=== PATIENT | female | born 2000 | race Caucasian/White ===

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

== ENCOUNTER 2022-02-15 17:31 | Emergency (ER) | payer OTHER, SELFPAY ==
--- NOTE | ~2022-02-15 | XR_ITS ---
XR finger 1st RT min 2V DATE: 02/15/2022 17:57 INDICATION: Object fell on thumb 5 days ago. Proximal thumb pain TECHNIQUE: 3 views COMPARISON: None FINDINGS: No fracture or dislocation, periosteal reaction or bone destruction. IMPRESSION: Negative Reviewed, dictated and finalized at location A. IMPRESSION: Negative
[2022-02-15 17:41] VITALS: BP 111/72; PULSE 87; RESP 16; TEMP 36.6; O2SAT 100
--- NOTE | 2022-02-15 18:10 | ED.UPPEXIN ---
HPI - Extremity Injury (Upper) General Chief Complaint: Extremity Injury, Upper Stated Complaint: injury to thumb Time Seen by Provider: 02/15/22 18:11 Source: patient, RN notes reviewed and old records reviewed Mode of arrival: ambulatory Limitations: no limitations History of Present Illness HPI narrative: 21 year old female who presents to [facility] care with complaints of injury to her right thumb at work 5 days ago. Patient reports that a [employer] came down onto her thumb smashing her thumb with swelling and redness to her thumb especially at dorsal base of her thumb. Patient states that swelling and soreness has lessened significantly since initial injury but continues to have some stiffness of her thumb and discomfort which she states is a 4/10 and is intermittent. MD complaint: injury to: right and hand (Thumb) Onset (ago): day(s) (5) Other Extremity Injury: Right: fingers (right thumb) Other injuries: none Handedness: right Place: work Severity: moderate Severity scale (1-10): 4 Associated symptoms: denies other symptoms Treatments prior to arrival: cold therapy and NSAIDS Related Data Home Medications Medication Instructions Recorded Confirmed No Home Medications 02/15/22 02/15/22 Allergies Allergy/AdvReac Type Severity Reaction Status Date / Time No Known Allergies Allergy Unknown Verified 02/15/22 17:39 Review of Systems Review of Systems: CONSTITUTIONAL: Denies fever, chills, or sweats. EYES: Denies visual changes, redness, or discharge. ENT: Positive for rhinorrhea, congestion, no sore throat, or otalgia. CARDIOVASCULAR: Denies chest pain, palpitations, or edema. RESPIRATORY: Denies cough or dyspnea. GASTROINTESTINAL: Denies abdominal pain, nausea, vomiting, or diarrhea. GENITOURINARY: Denies dysuria or hematuria. SKIN: Denies rash or itching. MUSCULOSKELETAL: Denies back pain,positive for some right thumb discomfort dorsal proximal thumb especially with no injury to nail, or myalgia. NEUROLOGIC: Denies headache, numbness, or weakness. PSYCHIATRIC: Denies anxiety or depression. All systems reviewed & are unremarkable except as noted in HPI and below PMFSH Past Medical History Medical History Torsion of right ovary Surgical History Surgical History H/O exploratory laparotomy abdominal for torsion of right ovary Social History Social History Smoking status: Never smoker Alcohol intake: never Substance use: never Gender identity (if verbalized by the patient): Male Comments At time of signature, agree with nursing past medical, surgical, social and family history. There is no relevant family history pertinent to the presenting complaint Exam Narrative: GENERAL: Well-appearing, well-nourished, and in no acute distress. HEAD: Normocephalic, atraumatic. EYES: PERRLA and EOMI. ENT: Nares patent with some clear nasal rhinorrhea no epistaxis. Mucous membranes moist.TM's normal with good light reflex, throat pink with no lesions or exudates or tonsil swelling. NECK: Supple. no lymphadenopathy CHEST: Clear to auscultation. No respiratory distress.SAO2 100% on room air HEART: Regular rate and rhythm. No murmur heard. Normal peripheral pulses. ABDOMEN: Soft, nontender, nondistended, normal active bowel sounds. EXTREMITIES: Normal range of motion. No edema. Some discomfort to dorsal proximal thumb with minimal swelling noted, full ROM of thumb with brisk capillary refill and strong right radial pulse SKIN: Warm, dry, no rash. NEURO: No focal deficits. Alert and oriented x3. Course Course Level of Care: Express Care Visit Vital Signs Vital signs: Vital Signs Temperature 36.6 C 02/15/22 17:41 Pulse Rate 87 02/15/22 17:41 Respiratory Rate 16 02/15/22 17:41 Blood Pressure 111/72 02/15/22 17:41 Pulse Oximetry 100 02/15
== END 2022-02-15 18:45 | disposition home or self-care (01) ==
PROVIDERS: Emergency Provider Registered Nurse; PCP Pediatrics
DX: S60.011A Contusion of right thumb without damage to nail, initial encounter (principal); X58.XXXA Exposure to other specified factors, initial encounter
CPT/HCPCS: 73140; 99213; G0463

== ENCOUNTER 2022-04-05 18:23 | Emergency (ER) | payer OTHER, SELFPAY ==
--- NOTE | ~2022-04-05 | CT_ITS ---
EXAMINATION: CT abdomen pelvis w con DATE: 04/05/2022 19:57 INDICATION: Low abdominal pain. Flank pain. TECHNIQUE: Computed tomography (CT) of the abdomen and pelvis was performed with 100 mL Omnipaque 350 intravenous contrast. Automated exposure control and iterative reconstruction technique were employe d. The dose-length product was 218.46 mGy-cm. COMPARISON: None. FINDINGS: The visualized portions of the lung bases are clear without pneumonia or pleural effusion. The heart size is normal. No pericardial effusion. The liver, gallbladder, spleen, pancreas, adrenal glands, and kidneys are normal. There are no dilated loops of bowel. The appendix is normal. There ar e no pathologically enlarged lymph nodes. There is physiologic fluid in the pelvis. The bones are unr emarkable. IMPRESSION: 1. No etiology for the patient's symptoms. Reviewed, dictated and finalized at location A.
[2022-04-05 18:35] VITALS: BP 132/95; PULSE 103; RESP 16; TEMP 36.9; O2SAT 100
--- NOTE | 2022-04-05 18:41 | ECG_ITS ---
Measurements Intervals [place] Rate: 90 P: 128 ND: 153 QRS: 145 QRSD: 81 T: 152 QT: 341 QTc: 419 Interpretive Statements SINUS RHYTHM ARM LEADS REVERSED INCOMPLETE RIGHT BUNDLE BRANCH BLOCK BASELINE ARTIFACT- I, II, III, AVL BORDERLINE ECG Electronically Signed On 04-05-2022 19:59:15 CDT by Aurelio Hayes D.O.
--- NOTE | 2022-04-05 18:42 | ED.ABDPAIN ---
HPI - Abdominal Pain General Chief Complaint: Abdominal Pain Stated Complaint: abd pain, back pain Source: patient Mode of arrival: ambulatory Limitations: no limitations History of Present Illness HPI narrative: this is a 21-year-old female with no significant past medical history presents with abdominal pain that started earlier this morning, the patient denies any nausea or vomiting there is no diarrhea constipation, the patient is afebrile, with some abdominal pain that she rates about a 7/10 localizing to the suprapubic and periumbilical area. Patient denies dysuria, no hematuria. MD elicited complaint: abdominal pain Pain Consistency: constant Location: periumbilical Severity: moderate Pain scale (0-10): 7 Quality: aching Radiation: suprapubic Migration to: periumbilical Exacerbating factors: nothing Relieving factors: nothing Related Data Home Medications Medication Instructions Recorded Confirmed No Home Medications 02/15/22 04/05/22 Allergies Allergy/AdvReac Type Severity Reaction Status Date / Time No Known Allergies Allergy Unknown Verified 02/15/22 17:39 Review of Systems Review of Systems: All systems reviewed & are unremarkable except as noted in HPI and below PMFSH Past Medical History Medical History Torsion of right ovary Surgical History Surgical History H/O exploratory laparotomy abdominal for torsion of right ovary Social History Social History Smoking status: Never smoker Alcohol intake: never Substance use: never Gender identity (if verbalized by the patient): Male Exam Const: General: no acute distress Orientation/consciousness: patient oriented x3 HENMT: Head: normal to inspection Eyes: Conjunctivae: conjunctivae normal Pupils: Equal, round and reactive pupils present Neck: Neck: normal visual inspection and no lymphadenopathy Chest: Chest palpation & inspection: normal inspection of the chest Resp: Effort & Inspection: normal respiratory effort Auscultation: clear to auscultation bilaterally Cardio: Rate: regular rate Rhythm: regular rhythm GI: GI Palp: Yes Soft to palpation and Yes Tenderness to palpation present (GI) Back/Spine/Pelvis: Back: no CVA tenderness Skin: General skin exam: normal color and no rashes or lesions noted Neuro: General: oriented to person, oriented to place and oriented to time Extrem: General: normal to inspection, full ROM and capillary refill normal Right lower extremity: normal to inspection, full ROM and normal capillary refill Psych: Appearance: grossly normal and well kempt Mental Status: mental status grossly normal Course Course Emergency Course: IV started patient received IV fluids, IV Toradol, CT scan of abdomen pelvis with contrast performed as well as blood work reviewed with patient and family. Vital Signs Vital signs: Vital Signs Temperature 36.9 C 04/05/22 18:35 Pulse Rate 103 H 04/05/22 18:35 Respiratory Rate 16 04/05/22 18:35 Blood Pressure 132/95 H 04/05/22 18:35 Pulse Oximetry 100 04/05/22 18:35 Temperature 36.9 C 04/05/22 18:35 Pulse Rate 103 H 04/05/22 18:35 Respiratory Rate 16 04/05/22 18:35 Blood Pressure 132/95 H 04/05/22 18:35 Pulse Oximetry 100 04/05/22 18:35 Critical Care Time Critical Care Time Critical Care Time: No Discharge Plan Discharge Prescriptions: No Action No Home Medications RF: 0
[2022-04-05] MEDS: KETOROLAC 30 MG/ML VIAL (*BKC) IV PUSH (18:50)
[2022-04-05] MEDS: SODIUM CHLORIDE 0.9% IV 1,000 ML 999 ML IV CONT (18:51)
[2022-04-05 19:03] LABS: Basophils Absolute Auto 0.02 K/mm3 (0.00-0.10); Basophils Percent Auto 0.4 % (0.0-1.0); Eosinophils Percent Auto 3.9 % (1.0-6.0); Hematocrit 36.8 % (35.0-49.0); Hemoglobin 11.9 g/dL (12.0-15.0); Immature Granulocyte Absolute 0.02 K/mm3 (0.00-0.00); Immature Granulocyte Percent A 0.4 % (0.0-0.0); Lymphocytes Absolute Auto 0.97 K/mm3 (1.10-4.50); Lymphocytes Percent Auto 18.9 % (18.0-42.0); Mean Corpuscular HGB Conc 32.3 g/dL (32.0-36.0); Mean Corpuscular Hemoglobin 28.4 pg (27.0-31.0); Mean Corpuscular Volume 87.8 fL (78.0-102.0); Mean Platelet Volume 10.4 fl (9.2-11.8); Monocytes Absolute Auto 0.44 K/mm3 (0.10-0.90); Monocytes Percent Auto 8.6 % (2.0-11.0); Neutrophils Absolute Auto 3.5 K/mm3 (1.7-7.2); Neutrophils Percent Auto 67.8 % (50.0-70.0); Platelet Count Result 219 K/mm3 (150-420); Red Blood Count 4.19 M/mm3 (4.20-5.40); Red Cell Distribution Width 12.9 % (11.6-14.4); White Blood Count 5.1 K/mm3 (4.8-10.8)
[2022-04-05 19:04] LABS: Add Urine Microscopic? YES; Appearance Urine Clear (Clear); Bilirubin Urine Negative (Negative); Blood Urine Negative (Negative); Color Urine Yellow (Yellow); Glucose Urine UA Negative (Negative); Ketones Urine Negative (Negative); Leukocyte Esterase Ur Negative (Negative); Nitrate Urine Negative (Negative); Protein Urine Negative (Negative); Specific Grav Ur 1.025 (1.010-1.020)
[2022-04-05 19:06] LABS: Pregnancy On Board Control Positive; Urine Pregnancy Test Negative
[2022-04-05 19:10] LABS: Bacteria Urine Trace /hpf; RBC Urine 0-2 /hpf (0-2); Squamous Epithelial Cell Urine Few /hpf (Few); WBC Urine 0-3 /hpf (0-3)
[2022-04-05 19:17] LABS: Partial Thromboplastin Time 29.4 SEC (23.90-30.70); Prothrombin Time 10.8 Seconds (9.50-12.10)
[2022-04-05 19:19] LABS: Alanine Aminotransferase 15 U/L (14-59); Albumin Level 3.2 g/dL (3.4-5.0); Alkaline Phosphatase 65 U/L (50-130); Anion Gap 6 mmol/L (8-16); Aspartate Amino Transferase 16 U/L (15-37); Bilirubin,Total 0.3 mg/dL (0.00-1.00); Blood Urea Nitrogen 9 mg/dL (7-18); CRP 4.1 mg/dL (0.0-0.9); Calcium 8.1 mg/dL (8.5-10.1); Carbon Dioxide 26 mmol/L (21-32); Chloride 101 mmol/L (98-108); Estimated Glomerular Filt Rate > 60; Glucose 91 mg/dL (70-99); Lipase 58 U/L (73-393); Osmolality Calculated 274 mOsm/kg (285-295); Potassium 3.7 mmol/L (3.5-5.1); Sodium 133 mmol/L (136-145); Total Protein 6.6 g/dL (6.4-8.2)
[2022-04-05 19:24] LABS: Lactic Acid Reflex 0.4 mmol/L (0.4-2.0)
[2022-04-05 20:41] VITALS: BP 124/83; PULSE 89; RESP 16; O2SAT 99
== END 2022-04-05 20:42 | disposition home or self-care (01) ==
PROVIDERS: Emergency Provider Emergency Medicine; PCP Pediatrics
DX: R10.9 Unspecified abdominal pain (principal)
CPT/HCPCS: 36415; 74177; 80053; 81001; 81025; 83605; 83690; 85025; 85610; 85730; 86140; 93005; 96361; 96374; 99284; J1885; J7030; Q9967

== ENCOUNTER 2022-12-20 02:19 | Emergency (ER) | payer OTHER, SELFPAY ==
--- NOTE | ~2022-12-20 | CT_ITS ---
CT Abdomen and Pelvis with contrast. History: Abdominal pain. Spiral CT of the abdomen and pelvis was performed after the administration of intravenous contrast. 1 00 cc of Omnipaque 350 was administered intravenously without complication. Dose reduction technique was used on this scan by utilizing automated exposure control and iterative reconstruction technique. The dose-length product (DLP) was 277.76 mGy-cm. COMPARISON: 04/05/2022 Findings: Scans through the lung bases demonstrate mild atelectatic change. The liver, spleen, pancreas, gallbladder, adrenals and kidneys are within normal limits. No evidence of aortic aneurysm. No lymphadenopathy is seen. There is no evidence of bowel obstruction. There is no evidence to suggest acute appendicitis or dive rticulitis. Images through the pelvis were performed. Urinary bladder unremarkable. No adnexal mass seen. No asci ella is seen. Impression: No significant abnormalities seen. Reviewed, dictated and finalized at [facility]. EATIONAL VEHICLE REPAIRER Impression: No significant abnormalities seen.
[2022-12-20 02:25] VITALS: BP 112/78; PULSE 125; RESP 18; TEMP 37; O2SAT 99
[2022-12-20 03:02] LABS: Basophils Absolute Auto 0.1 K/mm3 (0.0-0.1); Basophils Percent Auto 0.3 % (0.2-1.2); Eosinophils Absolute Auto 0.4 K/mm3 (0-0.3); Eosinophils Percent Auto 1.8 % (0-4.4); Hematocrit 43.8 % (37.0-47.0); Hemoglobin 14.7 g/dL (12.0-15.0); Immature Granulocyte Absolute 0.13 K/mm3 (0.00-0.031); Immature Granulocyte Percent A 0.6 % (0-0.5); Lymphocytes Absolute Auto 1.52 K/mm3 (0.9-3.2); Lymphocytes Percent Auto 7.4 % (18.3-44.2); Mean Corpuscular HGB Conc 33.6 g/dl (32-36); Mean Corpuscular Hemoglobin 29.3 pg (26-34); Mean Corpuscular Volume 87.4 fl (80-100); Monocytes Percent Auto 4.7 % (2.6-8.5); Neutrophils Absolute Auto 17.4 K/mm3 (1.3-6.7); Neutrophils Percent Auto 85.2 % (45.5-73.1); Platelet Count Result 309 k/mm3 (150-375); Red Blood Count 5.01 M/mm3 (4.2-5.4); Red Cell Distribution Width 13.2 % (11.5-14.5); White Blood Count 20.5 K/mm3 (4.5-10.0)
[2022-12-20] MEDS: DICYCLOMINE HCL INJ 20 MG/2 ML VIAL IM (03:04)
[2022-12-20] MEDS: SODIUM CHLORIDE 0.9% IV 1,000 ML 999 ML IV CONT (03:06)
[2022-12-20] MEDS: ONDANSETRON INJ 4 MG/2 ML VIAL IV PUSH (03:06)
[2022-12-20 03:12] LABS: Alanine Aminotransferase 20 U/L (6-35); Albumin Level 4.7 g/dL (3.5-5.1); Alkaline Phosphatase 65 U/L (38-126); Anion Gap 13 mmol/L (8-16); Aspartate Amino Transferase 32 U/L (14-36); Bilirubin,Total 0.7 mg/dL (0.2-1.3); Blood Urea Nitrogen 10 mg/dL (7-17); Calcium 8.8 mg/dL (8.4-10.2); Carbon Dioxide 16 mmol/L (22-30); Chloride 105 mmol/L (98-107); Estimated CRCL calculation 110 ml/min; Estimated Glomerular Filt Rate > 60; Glucose 122 mg/dL (65-110); Lipase 62 U/L (23-300); Potassium 4.1 mmol/L (3.4-5.0); Sodium 134 mmol/L (137-145)
[2022-12-20 04:00] LABS: Appearance Urine Slightly Cloudy (Clear); Bilirubin Urine 1+ (Negative); Blood Urine Negative (Negative); Color Urine Amber (Yellow); Glucose Urine UA Negative (Negative); Ketones Urine Trace mg/dL (Negative); Leukocyte Esterase Ur Negative LEU/UL (Negative); Nitrate Urine Negative (Negative); Protein Urine 1+ mg/dL (Negative); Specific Grav Ur 1.025 (1.001-1.035); Urobilinogen Urine 0.2 mg/dL (<2.0)
[2022-12-20 04:06] LABS: Bacteria Urine Trace /hpf; Mucus Urine Heavy /lpf; RBC Urine 0-2 /hpf (0-2); Squamous Epithelial Cell Urine Many /hpf (Few); WBC Urine 0-3 /hpf
[2022-12-20 04:07] LABS: Add Urine Microscopic? YES
[2022-12-20 04:37] VITALS: BP 130/50; PULSE 82; RESP 18; TEMP 36.7; O2SAT 99
--- NOTE | 2022-12-20 06:13 | ED.NAVMDI ---
HPI - Nausea/Vomiting/Diarrhea General Chief complaint: Nausea/Vomiting/Diarrhea Stated complaint: n/v/d Time Seen by Provider: 12/20/22 02:36 History of Present Illness HPI Narrative: Patient is a 22-year-old female who presents the ER with abdominal pain nausea vomiting. Sudden onset this evening. Reports her father had similar symptoms the day before. No blood in diarrhea. No alleviating factors for her cramping or vomiting. Cannot keep down water. Related Data Allergies Allergy/AdvReac Type Severity Reaction Status Date / Time No Known Allergies Allergy Unknown Verified 12/20/22 02:45 Review of Systems Review of Systems: All systems reviewed & are unremarkable except as noted in HPI and below Constitutional: Constitutional: Denies chills, Reports fatigue and Denies fever(s) Cardiovascular: Cardiovascular: Denies chest pain, Denies rapid heart rate and Denies radiating jaw, neck or arm pain Respiratory: Respiratory: Denies cough and Denies dyspnea Gastrointestinal: Gastrointestinal: Reports abdominal pain, Reports bloating, Reports diarrhea, Reports nausea and Reports vomiting Genitourinary: Genitourinary: Reports no additional female genitourinary complaints [facility] Past Medical History Medical History Torsion of right ovary Surgical History Surgical History H/O exploratory laparotomy abdominal for torsion of right ovary Social History Social History (System 10/02/22 @ 09:17 by Chelsy Ayala) Smoking status: Never smoker Alcohol intake: never Substance use: never Gender identity (if verbalized by the patient): Male Exam Narrative: GENERAL: Comfortable-appearing, well-nourished, and in no acute distress. HEAD: Normocephalic, atraumatic. ENT: Mucous membranes moist. CHEST: Clear to auscultation. No respiratory distress. HEART: Tachycardic and regular. Normal peripheral pulses. ABDOMEN: Soft, nontender, nondistended. EXTREMITIES: Normal range of motion. No edema. SKIN: Warm, dry, no rash. NEURO: Alert and oriented x3. PSYCH: Normal mood and affect. Course Course Emergency Course: Patient hydrated and received Zofran and Bentyl and feels markedly better. Discharge home. Vital Signs Vital signs: Vital Signs Temperature 98.6 F 12/20/22 02:25 Pulse Rate 125 H 12/20/22 02:25 Respiratory Rate 18 12/20/22 02:25 Blood Pressure 112/78 12/20/22 02:25 Pulse Oximetry 99 12/20/22 02:25 Oxygen Delivery Room Air 12/20/22 02:25 Temperature 98.0 F 12/20/22 04:37 Pulse Rate 82 12/20/22 04:37 Respiratory Rate 18 12/20/22 04:37 Blood Pressure 130/50 L 12/20/22 04:37 Pulse Oximetry 9 L 12/20/22 04:37 Oxygen Delivery Room Air 12/20/22 02:25 MDM - Nausea/Vomiting/Diarrhea Lab Data 12/20/22 02:56 12/20/22 02:56 Labs: Lab Results 12/20/22 12/20/22 12/20/22 Range/Units 02:56 02:56 02:56 WBC 20.5 H (4.5-10.0) K/mm3 RBC 5.01 (4.2-5.4) M/mm3 Hgb 14.7 (12.0-15.0) g/dL Hct 43.8 (37.0-47.0) % MCV 87.4 (80-100) fl MCH 29.3 (26-34) pg MCHC 33.6 (32-36) g/dl RDW 13.2 (11.5-14.5) % Plt Count 309 (150-375) k/mm3 MPV 10.0 (7.4-10.4) fl Immature Gran % (Auto) 0.6 H (0-0.5) % Neut % (Auto) 85.2 H (45.5-73.1) % Lymph % (Auto) 7.4 L (18.3-44.2) % [place] % (Auto) 4.7 (2.6-8.5) % Eos % (Auto) 1.8 (0-4.4) % Baso % (Auto) 0.3 (0.2-1.2) % Lymph # (Auto) 1.52 (0.9-3.2) K/mm3 [place] # (Auto) 1.0 H (0.1-0.6) K/mm3 Eos # (Auto) 0.4 H (0-0.3) K/mm3 Baso # (Auto) 0.1 (0.0-0.1) K/mm3 Abs Immat Gran (auto) 0.13 H (0.00-0.031) K/mm3 Absolute Neuts (auto) 17.4 H (1.3-6.7) K/mm3 Absolute Nucleated RBC 0.0 (0.0-0.012) K/mm3 Nucleated RBC % 0.0 (0.0-0.2) % Sodium 134 L (137-145) mmol/L Potassium 4.1 (3.4-5.0) mmol
[2022-12-20 06:24] VITALS: BP 128/70; PULSE 76; RESP 16; TEMP 36.9; O2SAT 100
== END 2022-12-20 06:28 | disposition home or self-care (01) ==
PROVIDERS: Emergency Provider Emergency Medicine; PCP Emergency Medicine
DX: K52.9 Noninfective gastroenteritis and colitis, unspecified (principal)
CPT/HCPCS: 36415; 74177; 80053; 81001; 81025; 83690; 85025; 96361; 96372; 96374; 99284; J0500; J2405; J7030; Q9967

== ENCOUNTER 2023-01-28 09:21 | Emergency (ER) | payer OTHER, SELFPAY ==
[2023-01-28] VITALS (19 sets, daily range): BP systolic 106–135; BP diastolic 62–84; PULSE 97–131; RESP 16–18; TEMP 36.8–37.9; O2SAT 97–100
--- NOTE | ~2023-01-28 | CT_ITS ---
EXAMINATION: CT abdomen pelvis wo con DATE: 01/28/2023 11:18 INDICATION: Left lower quadrant pain TECHNIQUE: Computed tomography (CT) of the abdomen and pelvis was performed without intravenous contr ast. The dose-length product was 281.06 mGy-cm. Automated exposure control and iterative reconstructi on technique were employed. COMPARISON: None. FINDINGS: Lung bases are unremarkable. Heart size normal. No significant pleural or pericardial effus ion. There is left perinephric stranding. The liver, spleen, pancreas, are unremarkable. There are pu nctate nonobstructing right renal stones. Possible gallstone. Nonobstructive bowel pattern. Small rosibel unt of free fluid in the pelvis. No free air. IMPRESSION: 1. Left perinephric stranding, nonspecific. Consider ascending urinary tract infection and/or pyelone phritis. 2: Nonobstructing right nephrolithiasis Reviewed, dictated and finalized at location [facility]. ET RECORDER IMPRESSION: 1. Left perinephric stranding, nonspecific. Consider ascending urinary tract in fection and/or pyelonephritis. 2: Nonobstructing right nephrolithiasis
--- NOTE | 2023-01-28 10:02 | ED.GENADULT ---
HPI - General Adult General Chief complaint: Abdominal Pain Stated complaint: abdominal pain Time Seen by Provider: 01/28/23 09:40 History of Present Illness HPI narrative: The patient is a 22-year-old otherwise healthy woman who has had a 3 day history of left lower quadrant abdominal pain, constant in nature, increasing in intensity, radiating to the left back, associated with fevers as high as 103? yesterday for which she took Tylenol, most recently yesterday. She had also taken Aleve and ibuprofen prior to that, 2 days ago. Today, she took an over the counter herbal remedy for flu-like symptoms. No Tylenol or ibuprofen today. One loose bowel movement yesterday but none today. No rhinorrhea currently but had rhinorrhea or yesterday. No sore throat today but had sore throat yesterday. No rash. No chest pain or cough. No other complaints. Malaise noted. No urinary symptoms such as dysuria urinary urgency. Has urinary frequency but has been drinking lots of water. No significant vaginal discharge. Related Data Allergies Allergy/AdvReac Type Severity Reaction Status Date / Time No Known Allergies Allergy Unknown Verified 01/28/23 09:40 Review of Systems Review of Systems: All systems reviewed & are unremarkable except as noted in HPI and below Constitutional: Constitutional: Reports as per HPI, Reports no additional constitutional complaints, Reports chills, Denies excessive sweating, Reports fatigue, Reports fever(s), Denies headache(s) and Reports weakness Eyes: Eyes: Reports as per HPI, Reports no additional eye complaints, Denies change in vision and Denies photophobia ENT: Reports system reviewed and no additional complaints, except as documented, Reports as per HPI, Denies dysphagia, Denies vertigo, Denies dizziness, Denies headache(s), Denies lip swelling, Denies nasal congestion, Reports sore throat, Denies throat swelling and Denies tongue swelling Cardiovascular: Cardiovascular: Reports as per HPI, Reports no additional cardiovascular complaints, Denies chest pain, Denies syncope, Denies rapid heart rate and Denies dyspnea Respiratory: Respiratory: Reports as per HPI, Reports no additional respiratory complaints, Denies chest congestion, Denies cough, Denies dyspnea and Denies wheezing Gastrointestinal: Gastrointestinal: Reports as per HPI, Reports no additional gastrointestinal complaints, Reports abdominal pain, Denies constipation, Denies dysphagia, Reports diarrhea, Denies nausea and Denies vomiting Genitourinary: Genitourinary: Reports as per HPI, Denies hematuria, Denies urinary frequency, Denies dysuria, Denies urinary incontinence and Denies urinary urgency Musculoskeletal: Musculoskeletal: Reports no additional musculoskeletal complaints, Reports back pain, Reports myalgias, Denies arthralgias, Denies joint swelling and Denies numbness Integumentary/Breasts: Skin/Breast: Reports system reviewed and no additional complaints, except as docu, Denies pruritus, Denies erythema, Denies rash and Denies skin ulcer Neurologic: Reports system reviewed and no additional complaints, except as documented, Reports as per HPI, Denies confusion, Denies vertigo, Denies dizziness, Denies syncope, Denies headache(s), Denies focal weakness, Denies numbness and Denies weakness Psychiatric: Psychiatric: Reports as per HPI, Denies anxiety, Denies confusion, Denies depression, Denies homicidal ideation and Denies suicidal ideation Endocrine: Endocrine: Reports no additional endocrine complaints, Denies excessive sweating, Denies fatigue, Denies polydipsia and Denies polyuria Hematologic/Lymphatic: Hematologic/Lymphatic: Reports no additional hematologic/lymphatic complaints, Denies easy bleeding and Denies easy bruising Allergic/Immunologic: Allergic/Immunologic: Reports no additional allergic/immunologic complaints, Denies lip swelling, Denies throat swelling, Denies tongue swelling and Denies wheezing PMFSH Past Medical History Medical His
[2023-01-28] MEDS: SODIUM CHLORIDE 0.9% IV 1,000 ML 999 ML IV CONT (10:27)
[2023-01-28] MEDS: ACETAMINOPHEN 325 MG TABLET 650 MG PO (10:28)
[2023-01-28 10:30] LABS: Basophils Absolute Auto 0.02 K/mm3 (0.00-0.10); Basophils Percent Auto 0.2 % (0.0-1.0); Eosinophils Absolute Auto 0.02 K/mm3 (0.02-0.50); Eosinophils Percent Auto 0.2 % (1.0-6.0); Hemoglobin 12.6 g/dL (12.0-15.0); Immature Granulocyte Absolute 0.07 K/mm3 (0.00-0.00); Immature Granulocyte Percent A 0.6 % (0.0-0.0); Lymphocytes Absolute Auto 0.53 K/mm3 (1.10-4.50); Lymphocytes Percent Auto 4.8 % (18.0-42.0); Mean Corpuscular HGB Conc 33.2 g/dL (32.0-36.0); Mean Corpuscular Hemoglobin 28.7 pg (27.0-31.0); Mean Corpuscular Volume 86.6 fL (78.0-102.0); Mean Platelet Volume 10.4 fl (9.2-11.8); Monocytes Absolute Auto 1.22 K/mm3 (0.10-0.90); Neutrophils Absolute Auto 9.2 K/mm3 (1.7-7.2); Neutrophils Percent Auto 83.2 % (50.0-70.0); Platelet Count Result 189 K/mm3 (150-420); Red Blood Count 4.39 M/mm3 (4.20-5.40); Red Cell Distribution Width 13.1 % (11.6-14.4); White Blood Count 11.1 K/mm3 (4.8-10.8)
[2023-01-28 10:33] LABS: Appearance Urine Clear (Clear); Bilirubin Urine Negative (Negative); Blood Urine Negative (Negative); Color Urine Light Yellow (Yellow); Glucose Urine UA Negative (Negative); Ketones Urine 3+ (Negative); Leukocyte Esterase Ur Trace LEU/UL (Negative); Nitrate Urine Positive (Negative); Protein Urine 1+ (Negative); Urobilinogen Urine 0.2 mg/dL (0.2-1.0); pH Urine 6.5 (5.0-8.0)
[2023-01-28 10:41] LABS: Add Urine Microscopic? YES; RBC Urine None seen /hpf (0-2)
[2023-01-28 10:42] LABS: Bacteria Urine 2+ /hpf; Squamous Epithelial Cell Urine Moderate /hpf (Few)
[2023-01-28 10:45] LABS: Albumin Level 3.1 g/dL (3.4-5.0); Alkaline Phosphatase 67 U/L (46-116); Amylase 19 U/L (25-115); Anion Gap 14 mmol/L (8-16); Aspartate Amino Transferase 19 U/L (15-37); Bilirubin,Total 0.3 mg/dL (0.00-1.00); Blood Urea Nitrogen 8 mg/dL (7-18); Calcium 8.7 mg/dL (8.5-10.1); Carbon Dioxide 22 mmol/L (21-32); Chloride 97 mmol/L (98-108); Estimated Glomerular Filt Rate > 60; Glucose 80 mg/dL (70-99); Lipase 18 U/L (16-77); Osmolality Calculated 273 mOsm/kg (285-295); Potassium 3.3 mmol/L (3.5-5.1); Sodium 133 mmol/L (136-145); Total Protein 7.6 g/dL (6.4-8.2)
[2023-01-28 10:48] LABS: Lactic Acid Reflex 0.9 mmol/L (0.4-2.0)
[2023-01-28 10:56] LABS: Alanine Aminotransferase 12 U/L (14-59)
[2023-01-28 10:59] LABS: Strep Group A RT-PCR NOT DETECTED (Negative)
[2023-01-28 11:01] LABS: SPREG INTERNAL CONTROL Positive; Serum Qual hCG Negative
[2023-01-28 11:04] LABS: Influenza A QL RT-PCR Negative (Negative); Influenza B QL RT-PCR Negative (Negative); SARS-CoV-2 RNA PCR Negative (Negative)
[2023-01-28 11:05] LABS: RSV RNA, RT-PCR Negative (Negative)
[2023-01-28] MEDS: KETOROLAC 15 MG/ML VIAL (*BKC) IV PUSH (11:56)
--- NOTE | 2023-01-31 14:25 | PC.NURSE ---
final urine culture reviewed by erp dr. aviles. erp states current tx of cephalexin is appropriate. no change in treatment plan
--- NOTE | 2023-02-03 18:39 | PC.NURSE ---
FINAL BLOOD CULTURE REPORT: No growth after 5 days.
--- NOTE | 2023-02-05 13:19 | PC.NURSE ---
final blood culture reports x2 reviewed. no growth after 5 days. no change in plan of care.
== END 2023-01-28 12:42 | disposition home or self-care (01) ==
PROVIDERS: Emergency Provider Emergency Medicine; PCP Internal Medicine
DX: N12 Tubulo-interstitial nephritis, not specified as acute or chronic (principal); N39.0 Urinary tract infection, site not specified; Z20.822 Contact with and (suspected) exposure to COVID-19
CPT/HCPCS: 36415; 74176; 80053; 81001; 82150; 83605; 83690; 84703; 85025; 87040; 87077; 87086; 87088; 87186; 87637; 87651; 96361; 96365; 96375; 99284; A9270; J0696; J1885; J7030

== ENCOUNTER 2024-10-25 07:38 | Emergency (ER) | payer OTHER, SELFPAY ==
[2024-10-25 07:39] VITALS: BP 126/95; PULSE 95; RESP 18; TEMP 36.6; O2SAT 98
--- NOTE | 2024-10-25 07:51 | ED.NAVMDI ---
HPI - Nausea/Vomiting/Diarrhea General Chief complaint: Nausea/Vomiting/Diarrhea Stated complaint: throwing up Time Seen by Provider: 10/25/24 07:40 Source: patient Mode of arrival: ambulatory Limitations: no limitations History of Present Illness HPI Narrative: patient is a 23-year-old female with nausea and vomiting for the past week but more so when trying the intake liquids or food. No abdominal pain. She has had a UTI in the past which went into pyelonephritis. She stopped her control 3 months ago. She has not had a period in 1 and half months. Slight dizziness at times over the past week as well. MD elicited complaint: nausea and vomiting Pertinent past history: other ( Kidney infection /UTI) Onset (ago): week(s) (1) Description of vomiting: food contents and watery Description of diarrhea: other ( no diarrhea) Associated nausea: Yes Associated abdominal pain: No Location of pain: none Radiation: other ( no pain) Pain consistency: other ( no pain) Severity: similar to previous episodes ( patient had UTI in the past) Pain scale (0-10): 0 Quality: other ( no pain) Exacerbating factors: none Relieving factors: none Context: other ( patient had nausea and vomiting with intake of food or water /liquids) Associated symptoms: other ( dizziness) Treatment prior to arrival: none Related Data Allergies Allergy/AdvReac Type Severity Reaction Status Date / Time No Known Allergies Allergy Unknown Verified 10/25/24 07:50 Review of Systems Review of Systems: All systems reviewed & are unremarkable except as noted in HPI and below Constitutional: Constitutional: Reports no additional constitutional complaints Eyes: Eyes: Reports no additional eye complaints ENT: Reports system reviewed and no additional complaints, except as documented Cardiovascular: Cardiovascular: Reports no additional cardiovascular complaints Respiratory: Respiratory: Reports no additional respiratory complaints Gastrointestinal: Gastrointestinal: Reports no additional gastrointestinal complaints Genitourinary: Genitourinary: Reports no additional female genitourinary complaints Musculoskeletal: Musculoskeletal: Reports no additional musculoskeletal complaints Integumentary/Breasts: Skin/Breast: Reports system reviewed and no additional complaints, except as docu Neurologic: Reports system reviewed and no additional complaints, except as documented Psychiatric: Psychiatric: Reports no additional psychiatric complaints Endocrine: Endocrine: Reports no additional endocrine complaints Hematologic/Lymphatic: Hematologic/Lymphatic: Reports no additional hematologic/lymphatic complaints Allergic/Immunologic: Allergic/Immunologic: Reports no additional allergic/immunologic complaints PMFSH Past Medical History Medical History Torsion of right ovary Surgical History Surgical History H/O exploratory laparotomy abdominal for torsion of right ovary Social History Social History Smoking status: Never smoker Alcohol intake: never Substance use: never Living arrangements: with family Gender identity (if verbalized by the patient): Male Exam Const: General: healthy appearing Nutritional Appearance: well nourished Orientation/consciousness: patient oriented x3 HENMT: Head: normal to inspection Ears: external ears normal Face/Nose/Sinus: Normal external nose present Eyes: Conjunctivae: conjunctivae normal Cornea: corneas normal Pupils: Equal, round and reactive pupils present Neck: Neck: normal visual inspection Chest: Chest palpation & inspection: normal inspection of the chest Resp: Effort & Inspection: normal respiratory effort and not labored Auscultation: clear to auscultation bilaterally and no crackles Cardio: Rate: regular rate Rhythm: regular rhythm Heart sounds: no murmurs GI: Inspection: non-distended GI Palp: Yes Soft to palpation, Yes Tenderness to palpation present (GI) ( suprapubic), No Guarding due to palpation present (GI), No Rigid due to palpation, No Hernia present, No Palpable mass present and No Rebound tenderness present Auscultation: normal bowel sounds Back/Spine/Pelvis: Back: no CVA tenderness Skin: General skin exam: normal color Rashes: no rashes Wounds: no wounds Neuro: General: patient oriented x3 Cranial nerves: Yes Nystagmus not present Speech: normal speech Extrem: General: normal to inspection Psych: Mental Status: mental status grossly normal Affect: normal affect Attitude: cooperative Course Vital Signs Vital signs: Vital Signs Temperature 36.6 C 10/25/24 07:39 Pulse Rate 95 10/25/24 07:39 Respiratory Rate 18 10/25/24 07:39 Blood Pressure 126/95 H 10/25/24 07:39 Pulse Oximetry 98 10/25/24 07:39 Oxygen Delivery Room Air 10/25/24 07:39 Temperature 36.6 C 10/25/24 07:39 Pulse Rate 95 10/25/24 07:39 Respiratory Rate 18 10/25/24 07:39 Blood Pressure 126/95 H 10/25/24 07:39 Pulse Oximetry 98 10/25/24 07:39 Oxygen Delivery Room Air 10/25/24 07:39 MDM - Nausea/Vomiting/Diarrhea MDM Narrative Medical decision making narrative: patient is a 23-year-old female with nausea and vomiting with dizziness for the past week. We will do urine and urinalysis at this time. Lab Data Labs: Lab Results 10/25/24 10/25/24 Range/Units 07:40 07:41 Urine Color Dark orange (Yellow) Urine Appearance Cloudy A (Clear) Urine pH 6.5 (5.0-8.0) Ur Specific [place] 1.020 (1.010-1.020) Urine Protein Trace H (Negative) Urine Glucose (UA) Negative (Negative) Urine Ketones 3+ H (Negative) Ur Blood (Man) 2+ H (Negative) Urine Nitrate Positive H (Negative) Urine Bilirubin 2+ H (Negative) Urine Urobilinogen 4.0 H (0.2-1.0) mg/dL Leukocyte Esterase Rfl Trace H (Negative) QUINTIN/UL Urine RBC 0-2 (0-2) /hpf Urine WBC 0-3 (0-3) /hpf Ur Squamous Epith Cells Occasional (Few) /hpf Amorphous Sediment Moderate H (None) Urine Bacteria 4+ H (None) /hpf Urine Test Negative Discharge Plan Discharge Clinical Impression: UTI (urinary tract infection) Qualifiers: Urinary tract infection type: acute cystitis Hematuria presence: with hematuria Qualified Code(s): N30.01 - Acute cystitis with hematuria Patient Disposition: Home, Self-Care Condition: Stable Instructions: Antibiotic Form, Urinary Tract Infection in Women (DC) Prescriptions: New ciprofloxacin HCl [Cipro] 500 mg tablet 500 mg PO BID 7 Days Qty: 14 0RF ondansetron 4 mg tablet,disintegrating 4 mg PO Q8H PRN (Reason: nausea and vomiting) Qty: 20 0RF Follow-up/Referrals: Harms,Luis Eduardo Hare M.D. [Primary Care Provider] - Time of Disposition: 08:12
[2024-10-25 07:58] LABS: Bilirubin Urine 2+ (Negative); Blood Urine 2+ (Negative); Glucose Urine UA Negative (Negative); Ketones Urine 3+ (Negative); Leukocyte Esterase Ur Trace LEU/UL (Negative); Nitrate Urine Positive (Negative); Protein Urine Trace (Negative); pH Urine 6.5 (5.0-8.0)
[2024-10-25 08:06] LABS: Add Urine Microscopic? YES
[2024-10-25 08:07] LABS: Amorphous Sediment Urine Moderate; Appearance Urine Cloudy (Clear); Bacteria Urine 4+ /hpf; RBC Urine 0-2 /hpf (0-2); Squamous Epithelial Cell Urine Occasional /hpf (Few); WBC Urine 0-3 /hpf (0-3)
[2024-10-25 08:08] LABS: Pregnancy On Board Control Positive; Urine Pregnancy Test Negative
[2024-10-25 08:11] LABS: Color Urine Dark Orange (Yellow)
--- NOTE | 2024-10-27 16:03 | PC.NURSE ---
PRELIMINARY URINE CULTURE RESULTS: ISOLATE 1: GREATER THAN 100,000 CFU/ML OF GRAM NEGATIVE BACILLI. PER DR FERRIS, TO AWAIT C&S.
== END 2024-10-25 08:19 | disposition home or self-care (01) ==
LOC: CHSED 08:18
PROVIDERS: Emergency Provider Emergency Medicine; PCP Family Medicine
DX: N30.01 Acute cystitis with hematuria (principal)
CPT/HCPCS: 81001; 81025; 87086; 87186; 99283

== ENCOUNTER 2025-05-07 00:19 | Emergency (ER) | payer OTHER, SELFPAY ==
[2025-05-07 00:19] VITALS: BP 115/77; PULSE 65; RESP 18; TEMP 36.4; O2SAT 94
--- OUTSIDE RECORDS SUMMARY | 2025-05-07 00:22 | XMS_ITS | Encounter Summary ---
Author Organization [facility] Healthcare Address [address] [place] [id number] Care Team Providers Care Yield Improvement Engineer Name Role Phone Luis Eduardo Martinez MD Primary Care Provider [phone] Reason for Visit * Reason Onset Date Comments Med Refill 05/06/2025 Encounter Details Date Type Department Care Team ([facility] st Contact Info) Description 05/06/2025 Telephone [facility] [place] [address] Luis Eduardo Martinez MD [address] [place] [address] Med Refill Social History Tobacco Use Types Packs/Day Years Used Date Smoking Tobacco: Never Smokeless Tobacco: Never Alcohol Use Standard Drinks/Week Comments No 0 (1 standard drink = 0.6 oz pur e alcohol) AUDIT-C Answer Date Recorded Q1: How often do you have a drink containing alc ohol? 2-3 times a week 01/27/2024 Q2: How many drinks containi ng alcohol do you have on a typical day when you are drinking? 1 or 2 01/27/2024 Q3: How often do you have si x or more drinks on one occasion? Never 01/27/2024 PHQ-2 Answer Date Recorded PHQ-2 Total Score (If total score is 3 or more points, staff should administer the PHQ-9) 1 01/27/2024 Comments No Sex and Gender Information Value Date Recorded Sex Assigned at Not on file Legal Sex Female 6:44 AM EXHIBITS COORDINATOR Gender Identity Female 11/27/2018 10:16 AM EXHIBITS COORDINATOR Sexual Orientation Not on file documented as of this encounter Miscellaneous Notes * Telephone Encounter - Lorelei Tang - 05/06/2025 2:40 PM CDT LMOR for patient to call office to schedule appt. * Telephone Encounter - Jami Lott MA - 05/06/2025 2:29 PM CDT Pt has not been since in a year, please schedule visit to discuss getting on medication, Thanks * Telephone Encounter - Carole Purdy - 05/06/2025 2:17 PM CDT Medication Question/Clarification Medication Name(s)/Dose: anxiety medicine What is the question or clarification needed? Pt said she just got out of rehab and wants some anxiety medicine because that is what she was one while she was there and it helped but can;t remember what it was called so please recommend something or advise if need an appt. If needed, Pharmacy(s) medication(s) should be sent to: on file Additional Comments: none Does message need to be routed? Yes-Action Needed documented in this encounter Plan of Treatment Not on file documented as of this encounter Visit Diagnoses Not on filedocumented in this encounter Care Teams Yield Improvement Engineer Relationship Specialty Start Date End Date Luis Eduardo Martinez MD [address] [place] [address] PCP - General Family Medicine 05/30/23 documented as of this encounter
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
--- OUTSIDE RECORDS SUMMARY | 2025-05-07 00:22 | XMS_ITS | Data Portability ---
Author Organization [facility] Address [address] [place] [address] Care Team Providers Care Tabulating Clerk Name Role Phone TYRONE ELLSWORTH Primary Care Provider [phone] Assessment No assessment recorded. Plan of Treatment Reminders Order Date Submit Date Provider Last Modified By Organization Details Last Modified Time Details Appointments None recorded. Lab hsv-2 igg Ab, serum 2021 [facility] (Lab), [address] [place], [address], 10:56:36 hbcab (hepatitis B core Ab) igm, serum 2021 [facility] (Lab), [address] [place], [address], 10:56:37 HBsAg (hepatitis B surface Ag), serum 2021 [facility] (Lab), [address] [place], [address], 10:56:35 hepatitis C virus Ab, serum 2021 [facility] (Lab), [address] [place], [address], 10:56:35 unlisted lab - HIV 1/2 antigen/ant ibody, reflex confirmatio n 2021 022 [facility] (Lab), [address], [place], [address], 10:56:36 RPR (rapid plasma reagin), serum 2021 022 [facility]ACK[facility] (Lab), [address], [place], [address], 10:56:37 Referral None recorded. Procedures None recorded. Surgeries None recorded. Imaging None recorded. Medication Orders Slynd 4 mg (28) tablet 2021 022 [id number], [address], [place], [id number], 17:34:13 Patient TargetsNo targets recorded. Patient InstructionsNo instructions recorded. Reason for Referral None Reported. Results Created Date Observation Date Name Description Value Unit Range Abnormal Flag Note LastModifiedBy Organization Detail LastModifiedTime 03/22/20 22 03/22/2022 CT/GC AND TRICH OMONA S VAGIN SAVANNA (RRNA ), URINE CT/GC and trichomonas vaginalis (rrna), urine CANCEL LED Reord ered Not Available [facility] (Lab) [address], [place], [address], 03/30/2022 10:56:17 03/22/20 22 03/22/2022 CT/GC (LISA) , SWAB chlamydia trachomatis, PCR Negati ve negati ve Not Available [facility] (Lab) [address], [place], [address], 03/30/2022 10:56:24 03/22/20 22 03/22/2022 CT/GC (LISA) , SWAB neisseria gonorrhoeae, PCR Negati ve negati ve Not Available [facility] (Lab) [address], [place], [address], 03/30/2022 10:56:24 03/22/20 22 03/22/2022 VAGIN ITIS/ VAGIN OSIS, DNA PROBE jean sp. detection, direct probe Negati ve negati ve Not Available [facility] (Lab) [address], [place], [address], 03/30/2022 10:56:24 03/22/20 22 03/22/2022 VAGIN ITIS/ VAGIN OSIS, DNA PROBE gardnerella vag. detection, direct probe Positi ve negati ve abnormal Not Available [facility] (Lab) [address], [place], [address], 03/30/2022 10:56:24 03/22/20 22 03/22/2022 VAGIN ITIS/ VAGIN OSIS, DNA PROBE trichomonas vag. detection, direct probe Negati ve negati ve Not Available [facility] (Lab) [address], [place], [address], 03/30/2022 10:56:24 03/22/20 22 03/22/2022 HEPAT ITIS C ANTIB ELEN SCREE N, REFLE X TO CONFI RMATI ON hepatitis C antibody Non-re active non-re active This assay was perfo rmed using [employer] reage nts and test kits. Value s obtai jennifer with other assay metho ds or kits canno t be used inter [facility] . Copy resul ts to: KEYUR LÓPEZ, fax [phone] Not Available [facility] (Lab) [address] [place], [address], 03/30/2022 10:56:35 03/22/20 22 03/22/2022 HEPAT ITIS B SURFA CE ANTIG EN hepatitis B surface antigen Non-re active non-re active This assay was perfo rmed using [employer] reage nts and test kits. Value s obtai jennifer with other assay metho ds or kits canno t be used inter [facility] . Copy resul ts to: KEYUR LÓPEZ, fax [phone] Not Available [facility] (Lab) [address] [place], [address], 03/30/2022 10:56:35 03/22/20 22 03/22/2022 HERPE S SIMPL EX VIRUS TYPE 2 SPECI FIC AB, IGG herpes simplex virus 2 IgG Negati ve negati ve Not Available [facility] (Lab) [address], [place], [address], 03/30/2022 10:56:36 03/22/20 22 03/22/2022 HERPE S SIMPL EX VIRUS TYPE 2 SPECI FIC AB, IGG herpes simples virus 2 IgG, quant <0.2 ai 0.0-0. 8 Copy resul ts to: KEYUR BOYDMAYDA LÓPEZ, fax Not Available [facility] (Lab) [address], [place], [address], 03/30/2022 10:56:36 03/22/20 22 03/22/2022 HIV 1/2 ANTIG EN/AN TIBOD Y, REFLE X CONFI RMATI ON HIV Ag-Ab total quant 0.08 idx <1.00 Not Available [facility] (Lab) [address], [place], [address], 03/30/2022 10:56:36 03/22/20 22 03/22/2022 HIV 1/2 ANTIG EN/AN TIBOD Y, REFLE X CONFI RMATI ON HIV Ag-Ab total Non-re active non-re active Not Available [facility] (Lab) [address], [place], [address], 03/30/2022 10:56:36 03/22/20 22 03/22/2022 HIV 1/2 ANTIG EN/AN TIBOD Y, REFLE X CONFI RMATI ON HIV-1 antibody quant 0.08 idx <1.00 Not Available [facility] (Lab) [address], [place], [address], 03/30/2022 10:56:36 03/22/20 22 03/22/2022 HIV 1/2 ANTIG EN/AN TIBOD Y, REFLE X CONFI RMATI ON HIV-1 antibody Non-re active non-re active Not Available [facility] (Lab) [address], [place], [address], 03/30/2022 10:56:36 03/22/20 22 03/22/2022 HIV 1/2 ANTIG EN/AN TIBOD Y, REFLE X CONFI RMATI ON HIV-1 antigen (P24) quant 0.03 idx <1.00 Not Available [facility] (Lab) [address], [place], [address], 03/30/2022 10:56:36 03/22/20 22 03/22/2022 HIV 1/2 ANTIG EN/AN TIBOD Y, REFLE X CONFI RMATI ON HIV-1 antigen (P24) Non-re active non-re active Not Available [facility] (Lab) [address] [place], [address], 03/30/2022 10:56:36 03/22/20 22 03/22/2022 HIV 1/2 ANTIG EN/AN TIBOD Y, REFLE X CONFI RMATI ON HIV-2 antibody quant 0.04 idx <1.00 Not Available [facility] (Lab) [address] [place], [address], 03/30/2022 10:56:36 03/22/20 22 03/22/2022 HIV 1/2 ANTIG EN/AN TIBOD Y, REFLE X CONFI RMATI ON HIV-2 antibody Non-re active non-re active Copy resul ts to: KEYUR LÓPEZ, fax HIV testi ng is perfo rmed using [employer]assa y techn ology . The final overa ll HIV Ag-Ab resul t is deter mined based on the final resul t for each indiv idual deborah te. If any of the deborah ella has 2 or more repli cates that are REACT NIC, the final overa ll HIV Ag-Ab resul t is also React nic. A Non-R eacti ve test resul t at any point in the inves tigat ion of indiv idual subje cts does not precl ude the possi bilit y of expos ure to or infec tion with HIV-1 and/o r HIV-2 . Non-R eacti ve resul ts can occur if the quant ity of marke r prese nt in the sampl e is below the detec tion limit s of the assay . React nic speci mens must be inves tigat ed by addit ional , more speci fic suppl ement al tests . Speci men confi rmati on will be perfo rmed by the too.me us HIV 1/2 Suppl ement al Assay . The perfo rmanc e of this assay has not been estab lishe d for neona ella and the assay shoul d not be used in indiv idual s young er than 2 years of age. Not Available [facility] (Lab) [address] , [place], [address], 03/30/2022 10:56:36 03/22/20 22 03/22/2022 RPR SCREE N/REF KYLE TITER /FTA RPR screen Nonrea ctive nonrea ctive Copy resul ts to: KEYUR LÓPEZ, fax Not Available [facility] (Lab) [address], [place], [address], 03/30/2022 10:56:37 03/22/20 22 03/22/2022 HEPAT ITIS B CORE, IGM hepatitis B core IgM antibody Negati ve negati ve Copy resul ts to: KEYUR LÓPEZ, fax [phone] Not Available [facility] (Lab) [address] [place], [address], 03/30/2022 10:56:37 Result Notes None recorded. Procedures Surgical History Date Name Laterality Status Provider Name and Address Organization Details Recorded Time 12/02/19 20 tonsillectomy completed [facility] 03/22/2022 15:07:14 12/02/19 19 Date of Last Pap Smear completed [facility] 03/22/2022 15:16:08 12/02/19 19 procedure on ovary completed [facility] 03/22/2022 15:07:03 Imaging Results None recorded. Procedure Notes None recorded. Medical Equipment None Reported. Allergies No known drug allergies Medications Name Sig Start Date Stop Date Status Note LastModified by Organization Details LastModified Time prednisone 20 mg tablet TAKE 3 TABLETS BY MOUTH EVERY DAY FOR 3 TO 5 DAYS 03/22 completed Not Available Not Available Not Available penicillin V potassium 500 mg tablet TAKE 1 TABLET BY MOUTH EVERY 12 HOURS FOR 10 DAYS 03/22 completed Not Available Not Available Not Available metronidazol e 500 mg tablet TAKE 1 TABLET BY MOUTH EVERY 12 HOURS FOR 7 DAYS 05/22 completed Not Available Not Available Not Available tramadol 50 mg tablet TAKE 1 TABLET BY MOUTH EVERY 6 HOURS NEEDED FOR PAIN 05/22 completed Not Available Not Available Not Available terbinafine HCl 250 mg tablet TAKE 1 TABLET BY MOUTH EVERY DAY 05/22 completed Not Available Not Available Not Available naproxen 500 mg tablet,delay ed release TAKE 1 TABLET BY MOUTH TWICE DAILY WITH FOOD NEEDED FOR PAIN 03/22 completed Not Available Not Available Not Available drospirenone 3 mg-ethinyl estradiol 0.03 mg tablet TAKE 1 TABLET BY MOUTH DAILY 03/22 completed Not Available Not Available Not Available Monistat 1 Combo Pack 05/22 completed Not Available Not Available Not Available Slynd 4 mg (28) tablet Take 1 tablet every day by oral route. 2021 active Lot [id number] Not Available Not Available Not Available Zafemy 150 mcg-35 mcg/24 hr transdermal patch active Not Available Not Available Not Available Vitals Date Recorded Body height Body mass index (BMI) Percentile per age and sex Body mass index (BMI) Body weight Systolic blood pressure Diastolic blood pressure Provider Name and Address Organization Details Last Updated DateTime 2 160.02 cm 55 % 22 kg/m2 55575.4 5 g 121 mm[Hg] 78 mm[Hg] Shirin Chavira [facility] 2 15:15:40 Date Recorded Body height Body mass index (BMI) Percentile per age and sex Body mass index (BMI) Body weight Systolic blood pressure Diastolic blood pressure Provider Name and Address Organization Details Last Updated DateTime 2 160.02 cm 54 % 22 kg/m2 71638.4 5 g 120 mm[Hg] 86 mm[Hg] Shirin Chavira [facility] 2 16:08:54 Social History Question Answer Notes LastModified by [employer] Details LastModified Time Tobacco Smoking Status Never Smoker Shirin Chavira [facility] 03/22/2022 15:06:50 Are You Blind Or Do You Have Difficulty Seeing? No Information not available 03/22/2022 Are You Deaf Or Do You Have Serious Difficulty Hearing? No Information not available 03/22/2022 What Type Of Diet Are You Following? REGULAR Information not available 03/22/2022 How Many Days Of Moderate To Strenuous Exercise, Like A Brisk Walk, Did You Do In The Last 7 Days? 2 Information not available 03/22/2022 Do You Have Difficulty Walking Or Climbing Stairs? No Information not available 03/22/2022 Sex: Unknown Functional Status Question Answer Note LastModified by [employer] Details LastModified Time What is your level of alcohol consumption? None Information not available 03/22/2022 Are you able to walk? YESWOREST Information not available 03/22/2022 Are you able to care for yourself? Yes Information not available 03/22/2022 Do you have difficulty dressing or bathing? No Information not available 03/22/2022 What is your exercise level? Moderate Information not available 03/22/2022 Mental Status None recorded. Family History Nothing Reported. Medical History Condition Response Allergies (Food, seasonal, environmental ) N Other N Breast Cancer N Drug/Latex Allergies/Reactions N Blood Transfusion N Dermatologic Disorders N Lung Disease N Defects or Inherited Disease N Breast Problem N Gestational Diabetes N Hematologic disorders N Anesthesia Complications N History of STI N Deep Vein Thrombosis N Polycystic ovary syndrome N Anxiety Disorder N Autoimmune disease N Arthritis N Infertility N Polyps N Acid Reflux (GERD) N History of abnormal pap N Cancer N Stroke N Varicosities N Neurologic/Epilepsy N Endometriosis N High Cholesterol N Headaches N Fibromyalgia N Kidney Disease N Heart Problems N Kidney or Bladder Problems N Thyroid Problems N GI Problems N Eating Disorder N Anemia N Art (IVF or FET) N Psychiatric Illness N Ovarian Cancer N Diabetes N Pulmonary (TB, Asthma) N Hepatitis/Liver Disease N No Past Medical History N Eczema N Urinary Tract Infection N Abuse/Domestic Violence N Asthma N Trauma/Violence N Depression/ depression N Heart Disease N Pre-Eclampsia N Hypertension N Osteoporosis N Thrombophilias N Gynecological History Statement/Question Response Abnormal Pap N Flow Moderate Date of LMP 05/17/2022 STIs/STDs N HPV Vaccine Y Duration of Flow (days) 5 Current Control Method Patch Sexually Active? Y Menses Monthly Y Age of first menstrual cycle 16 Date of Last Pap Smear 12/02/2018 Sexual Problems? N Desired Control Method Patch LMP Definite Obstetrics History GPAL:G 0 P 0 0 0 0 Past Encounters Encounter ID Performer Location Encounter Start Date Encounter Closed Date Diagnosis/Indication Diagnosis SNOMED-CT Code Diagnosis ICD10 Code Diagnosis Note [id number] RENE Decker [place] [address] [address] 03/22/2022 14:57:27 03/22/2022 15:57:15 Venereal disease screening 639193923 Z11.3 Sexually t ransmitted infectious disease 7910190 A64 STI testing sent, vaginitis panel sent.No symptoms, will await testing.Sm all lesion, less than 1mm at bottom of vulva consistent with a condolyma. We discussed this, discussed likely from HPV virus. She has had it for about 1 month.I encouraged condom use to help protect against STI's . We discussed in great length on condom use, and having any new partners get STI testing as well.She would like to f/u in 2 months for vulvar exam as she is concerned about genital warts and concerned that this will increase in size/numbe r. I discussed we can reassess the vulva in 2 months to assess for any changes. Face to face time was 20 minutes. [id number] RENE Decker [place] [address] [address] 05/22/2022 15:56:24 05/22/2022 17:43:27 Contraception care management 872960932 Z30.9 Vulvar exam normal, previously seen lesion/bum p has resolved.W e discussed all control options in depthDiscu ssed all control options in great detail. Pt would like to start POP. She is aware of the risks and benefits. She has contraindi cations to use of OCP or other estrogen containing hormonal therapy. Pt will start her pills on the first saturday following the start of her period. She is aware it is not effective for control the first month. She is also aware of the importance of taking at the same time every day. Encouraged use of condoms as the pill does not protect against STD's. Will return in 3 months for med check. Consent was read and signed. Pt verbalized understand ing. She denies hx of DVT/PE, HTN, liver disease, Cancer, Stroke/CO, or migraine with auraSample s of Slynd given x 3 monthsRTC for 3 month med check Time spent in visit is a total of 35 mins with at least 50% of visit consisting of counseling and review of plan of care. Health Concerns Section Related Observation LastModified by Organization Detai ls LastModified Time None Recorded Concern Status LastModified by Organization Details LastModified Time None Recorded Advance Directives Directive None Recorded Payers Encounter Date Sequence Insurance Name Policy Number Policy Mendoza Covered Member ID Mendoza Member ID Guarantor Name 03/22/2022 1 [facility] [id number] Melissa Alcantara [id number] Mony Alcantara 05/22/2022 1 [facility] [id number] Melissa Alcantara [id number] Mony Alcantara Notes Date Note Type Note Provider Name and Address Organization Details Recorded Time 03/22/2022 text/html Here today for STI screening, concerned partner has other partners. No symptoms. She did have itching a few weeks ago, used monistat and itching resolved. RENE Decker [address], [place], [address], [facility] 03/22/2022 15:45:18 05/22/2022 text/html Here for vulvar skin check due to skin bump found at [facility].No vaginal symptoms today. No discharge, itching, or bumps.Would like to discuss control options, she was on the patch prescribed by old OBGYN provider. She was having skin irritation and abdominal pains with the patch, went to ED with abdominal pains, was told everything was normal. She has since stopped the patch. RENE Decker [address], [place], [address], [facility] 05/22/2022 17:34:47 OBGyn Episode No OBEpisode recorded.
--- OUTSIDE RECORDS SUMMARY | 2025-05-07 00:22 | XMS_ITS | Referral Summary ---
Author Organization [facility] Address [address] [place] [address] Care Team Providers Care Aircraft Maintenance Technician Name Role Phone Luis Eduardo Martinez MD Primary Care Provider [phone] Encounters Date Type Department Care Team Description 05/06/2025 Telephone Family Phys[facility] [address] [place] [address] Luis Eduardo Martinez MD Med Refill from Last 3 Months Allergies No known active allergies Medications FLUoxetine [...] 01/27/2024 Assessment & Plan (01/27/2024 5:20 PM TEXTILE STYLIST): Her weight is stable. Moderate episode of recurrent major depressive d isorder 05/30/2023 Assessment & Plan (04/29/2024 3:52 PM CDT): Currently stable without the use of medications. Feels good where she is in her apartment and working. We reviewed red flags. RTC in 6 months. Sooner for any concerns. She is in agreement with plan states understanding. Assessment & Plan (01/27/2024 5:19 PM TEXTILE STYLIST): Reports stable. Will continue fluoxetine. Will also [...] -No drug use. Non smoker. -Following with GENERAL ADMINISTRATOR BMI 21.0-21.9, adult 05/30/2023 024 Ovarian torsion 11/04/2018 11/27/2018 Overview (11/04/2018): Added automatically from request for surgery [id number] Immunizations Immunization Administration Dates Next Due DTP [...] Polio, Unspecified 07/13/2008 Tdap 02/13/2022,07/01/2012 Varicella 07/13/2008,01/03/2005 Social History Tobacco Use Types Packs/Day Years [...] on file Legal Sex Female 6:44 AM TEXTILE STYLIST Gender Identity Female 11/27/2018 10:16 AM TEXTILE STYLIST Sexual Orientation Not on file Last Filed Vital Signs Vital Sign Reading [...] 04/29/2024 3:31 PM CDT Plan of Treatment Not on file Procedures Procedure Name Priority Date/Time Associated Diagnosis Comments N. GONORRHOEAE/C. TRACHOMATIS AMPLIFICATION Routine 04/12/2023 7:31 PM CDT Routine screening for STI (sexually transmitted infection) from Last 3 Months or Most Recently Relevant to Health Maintenance Results * N. gonorrhoeae/C. trachomatis Amplification Vaginal (04/12/2023 7:31 PM CDT) C. trachomatis Not Detected Not Detected [facility] N. gonorrhoeae Not Detected Not Detected [facility] Comment: Interpretive Data Testing performed by the [facility]. This assay detects Chlamydia trachomatis and [...] LAB MICROBIOLOGY - GENERAL ORDERABLES Final Result [facility] Department [place] [address] from Last 3 Months or Most Recently Relevant to Health Maintenance Insurance [employer] Advance Directives For more information, please contact: [phone] * Full Code (Latest Code Status on File) Date Activated Date Inactivated Comments 11/04/2018 11:36 PM 11/05/2018 2:56 AM Care Teams Aircraft Maintenance Technician Relationship Specialty Start Date End Date Luis Eduardo Martinez MD [address] [place] [address] PCP - General Family Medicine 05/30/23
--- NOTE | 2025-05-07 00:31 | PC.NURSE ---
DR TAYLOR AT THE BEDSIDE
--- NOTE | 2025-05-07 00:35 | ED.ALCOHOL ---
HPI - Alcohol General Chief Complaint: Alcohol Stated Complaint: Withdrawal Time Seen by Provider: 05/07/25 00:25 Source: patient and EMS Mode of arrival: ambulatory Limitations: no limitations History of Present Illness HPI narrative: this is a 24-year-old female that some chronic alcohol use recently in a alcohol rehab center and discharged without any medications did not have a follow-up with her primary presents via EMS with some after she had a 5th of alcohol earlier today and has been having tremors. No seizure activity no headache no blurry vision no nausea vomiting no abdominal pain. complaint: alcohol intoxication, alcohol withdrawal and alcohol dependence Last drink: hours (ago) Chronic alcohol use: Yes Previous visits for alcohol intoxication: Yes Recent trauma: No Associated symptoms: denies other symptoms Related Data Home Medications ?Medication ?Instructions ?Recorded ?Confirmed ?Last Taken ?Type chlordiazepoxide HCl .ROUTE 05/07/25 Unknown History fluoxetine .ROUTE 05/07/25 Unknown History trazodone .ROUTE 05/07/25 Unknown History Allergies Allergy/AdvReac Type Severity Reaction Status Date / Time No Known Allergies Allergy Unknown Verified 05/07/25 00:30 Review of Systems Review of Systems: All systems reviewed & are unremarkable except as noted in HPI and below PMFSH Past Medical History Medical History Torsion of right ovary Surgical History Surgical History H/O exploratory laparotomy abdominal for torsion of right ovary Social History Social History Smoking status: Never smoker Alcohol intake: never Substance use: never Living arrangements: with family Gender identity (if verbalized by the patient): Male Exam Const: General: no acute distress Nutritional Appearance: well nourished Orientation/consciousness: patient oriented x3 Limitations: no limitations HENMT: Head: normal to inspection Eyes: Conjunctivae: conjunctivae normal Pupils: Equal, round and reactive pupils present EOM: EOMs intact bilaterally Neck: Neck: normal visual inspection, no lymphadenopathy and no meningeal signs Chest: Chest palpation & inspection: normal inspection of the chest Resp: Effort & Inspection: normal respiratory effort Auscultation: clear to auscultation bilaterally Cardio: Rate: regular rate Rhythm: regular rhythm GI: GI Palp: Yes Soft to palpation Auscultation: normal bowel sounds Urinary Catheter: Urinary Catheter: patent and draining Skin: General skin exam: normal color Rashes: no rashes Wounds: no wounds Neuro: General: patient oriented x3, moves all extremities, no meningeal signs and no focal motor deficits Extrem: General: normal to inspection Course Course Emergency Course: Patient received banana bag, labs obtained and reviewed with patient and a dose of p.o. Librium was administered. Vital Signs Vital signs: Vital Signs Temperature 36.4 C 05/07/25 00:19 Pulse Rate 65 05/07/25 00:19 Respiratory Rate 18 05/07/25 00:19 Blood Pressure 115/77 05/07/25 00:19 Pulse Oximetry 94 05/07/25 00:19 Oxygen Delivery Room Air 05/07/25 00:19 Temperature 36.4 C 05/07/25 00:19 Pulse Rate 99 05/07/25 01:53 Respiratory Rate 18 05/07/25 01:53 Blood Pressure 94/54 L 05/07/25 01:53 Pulse Oximetry 95 05/07/25 01:53 Oxygen Delivery Room Air 05/07/25 01:53 MDM - Alcohol Lab Data 05/07/25 00:44 05/07/25 00:44 Labs: Lab Results 05/07/25 Range/Units 00:44 WBC 11.4 H (4.8-10.8) K/mm3 RBC 4.34 (4.20-5.40) M/mm3 Hgb 13.7 (12.0-15.0) g/dL Hct 40.0 (35.0-49.0) % MCV 92.2 (78.0-102.0) fL MCH 31.6 H (27.0-31.0) pg MCHC 34.3 (32-36) g/dL RDW 11.5 L (11.6-14.4) % Plt Count 289 (150-420) K/mm3 MPV 8.9 L (9.2-11.8) fl Immature Gran % (Auto) 0.3 H (0.0-0.0) % Neut % (Auto) 76.7 H (50.0-70.0) % Lymph % (Auto) 11.3 L (18.0-42.0) % [place] % (Auto) 10.5 (2.0-11.0) % Eos % (Auto) 0.7 L (1.0-6.0) % Baso % (Auto) 0.5 (0.0-1.0) % Lymph # (Auto) 1.29 (1.10-4.50) K/mm3 [place] # (Auto) 1.19 H (0.10-0.90) K/mm3 Eos # (Auto) 0.08 (0.02-0.50) K/mm3 Baso # (Auto) 0.06 (0.00-0.10) K/mm3 Abs Immat Gran (auto) 0.03 H (0.00-0.00) K/mm3 Absolute Neuts (auto) 8.72 H (1.70-7.20) K/mm3 Absolute Nucleated RBC 0.00 (0.00-0.00) K/mm3 Nucleated RBC % 0.0 (0-0.0) % Sodium 144 (137-145) mmol/L Potassium 3.8 (3.4-5.0) mmol/L Chloride 106 (98-107) mmol/L Carbon Dioxide 28 (22-30) mmol/L Anion Gap 10 (4-12) mmol/L BUN 4 L D (7-17) mg/dL Creatinine 0.52 L (0.7-1.0) mg/dL Estim Creat Clear Calc 123 ml/min Estimated GFR > 60 (59 - ) Glucose 101 (65-110) mg/dL Calculated Osmolality 294 (285-295) mOsm/kg Calcium 8.9 (8.4-10.2) mg/dL Magnesium 1.9 (1.6-2.3) mg/dL Total Bilirubin 0.5 (0.2-1.3) mg/dL AST 89 H (14-36) U/L ALT 32 (6-35) U/L Alkaline Phosphatase 89 (38-126) U/L Total Creatine Kinase 131 (30-135) U/L Total Protein 7.5 (6.3-8.2) g/dL Albumin 4.6 (3.5-5.1) g/dL Ethyl Alcohol 306 H* (<10) mg/dL Critical Care Time Critical Care Time Critical Care Time: No Discharge Plan Discharge Clinical Impression: Alcoholic intoxication Qualifiers: Complication of substance-induced condition: uncomplicated Qualified Code(s): F10.920 - Alcohol use, unspecified with intoxication, uncomplicated Alcohol withdrawal syndrome Qualifiers: Complication of substance-induced condition: uncomplicated Qualified Code(s): F10.930 - Alcohol use, unspecified with withdrawal, uncomplicated Patient Disposition: Home Condition: Stable Instructions: Antibiotic Form, Alcohol Intoxication (ED), Abuse of Alcohol (ED), Alcohol Dependence (ED) Additional Instructions: advised patient to take medication as prescribed and to follow with primary within the next 2 to 3 days for further evaluation and treatment. Patient Language: Estonian Prescriptions: New chlordiazepoxide HCl 10 mg capsule 10 mg PO TID PRN (Reason: anxiety) Qty: 30 0RF fluoxetine [Prozac] 20 mg capsule 20 mg PO DAILY Qty: 30 0RF No Action ciprofloxacin HCl [Cipro] 500 mg tablet 500 mg PO BID 7 Days Qty: 14 0RF ondansetron 4 mg tablet,disintegrating 4 mg PO Q8H PRN (Reason: nausea and vomiting) Qty: 20 0RF chlordiazepoxide HCl [Librium] .ROUTE trazodone .ROUTE fluoxetine [Prozac] .ROUTE Follow-up/Referrals: Harms,Luis Eduardo Hare M.D. [Primary Care Provider] - Stand Alone Forms: Work/School Release IP Time of Disposition: 01:30
--- NOTE | 2025-05-07 00:39 | PC.NURSE ---
ATTEMPTED TO CONTACT [facility] FOR MEDICATION LIST. UNABLE TO SPEAK WITH A LIVE PERSON.
[2025-05-07] MEDS: chlordiazePOXIDE (*CRX) 5 MG CAPSULE 10 MG PO (00:49)
--- OUTSIDE RECORDS SUMMARY | 2025-05-07 00:49 | XMS_ITS | Clinical Summary ---
Author Organization [facility] Address [address] [place] [address] Care Team Providers Care Middleware Systems Architect Name Role Phone Luis Eduardo Martinez MD Primary Care Provider [phone] Allergies No known active allergies Medications FLUoxetine [...] 01/27/2024 Assessment & Plan (01/27/2024 5:20 PM INSULATION SPRAYER): Her weight is stable. Moderate episode of recurrent major depressive d isorder 05/30/2023 Assessment & Plan (04/29/2024 3:52 PM CDT): Currently stable without the use of medications. Feels good where she is in her apartment and working. We reviewed red flags. RTC in 6 months. Sooner for any concerns. She is in agreement with plan states understanding. Assessment & Plan (01/27/2024 5:19 PM INSULATION SPRAYER): Reports stable. Will continue fluoxetine. Will also [...] -No drug use. Non smoker. -Following with ACCOUNTS ADMINISTRATOR BMI 21.0-21.9, adult 05/30/2023 02/26/2 024 Ovarian torsion 11/04/2018 11/27/2018 Overview (11/04/2018): Added automatically from request for surgery [id number] Encounters Date Type Department Care Team Description 05/06/2025 Telephone [facility] [address] [place] [address] Luis Eduardo Martinez MD Med [...] on file Legal Sex Female 6:44 AM INSULATION SPRAYER Gender Identity Female 11/27/2018 10:16 AM INSULATION SPRAYER Sexual Orientation Not on file Obstetrics History [...] C. trachomatis Not Detected Not Detected [facility] N. gonorrhoeae Not Detected Not Detected [facility] Comment: Interpretive Data Testing performed by the [facility]. This assay detects Chlamydia trachomatis and [...] GENERAL ORDERABLES Final Result [facility] Department [place] [address] from Last 3 Months or Most Recently Relevant to Health Maintenance Insurance EMPLOYEES [employer] Advance Directives For more information, please contact: [phone] * Full Code (Latest Code Status on File) Date Activated Date Inactivated Comments 11/04/2018 11:36 PM 11/05/2018 2:56 AM Care Teams Middleware Systems Architect Relationship Specialty Start Date End Date Luis Eduardo Martinez MD [address] [place] [address] PCP - General Family Medicine 05/30/23
--- OUTSIDE RECORDS SUMMARY | 2025-05-07 00:49 | XMS_ITS | Encounter Summary ---
Author Organization [facility] Healthcare Address [address] [place] [address] Care Team Providers Care Foreman Or Supervisor And Operator Name Role Phone Luis Eduardo Martinez MD Primary Care Provider [phone] Reason for Visit * Reason Onset Date Comments Med Refill 05/06/2025 Encounter Details Date Type Department Care Team ([facility] st Contact Info) Description 05/06/2025 Telephone [facility] [place] [address] Luis Eduardo Martinez MD [address] [place] [address] Med Refill Social History Tobacco [...] on file Legal Sex Female 6:44 AM BILLING CLINICIAN Gender Identity Female 11/27/2018 10:16 AM BILLING CLINICIAN Sexual Orientation Not on file documented as [...] on filedocumented in this encounter Care Teams Foreman Or Supervisor And Operator Relationship Specialty Start Date End Date Luis Eduardo Martinez MD [address] [place] [address] PCP - General Family Medicine 05/30/23 documented as of this encounter
--- OUTSIDE RECORDS SUMMARY | 2025-05-07 00:49 | XMS_ITS | Referral Summary ---
Author Organization [facility] Address [address] [place] [address] Care Team Providers Care Hinging Machine Operator Name Role Phone Luis Eduardo Martinez MD Primary Care Provider [phone] Encounters Date Type Department Care Team Description 05/06/2025 Telephone [facility] [address] [facility] [place] [address] Luis Eduardo Martinez MD Med [...] 01/27/2024 Assessment & Plan (01/27/2024 5:20 PM ACQUISITION ASSOCIATE): Her weight is stable. Moderate episode of recurrent major depressive d isorder 05/30/2023 Assessment & Plan (04/29/2024 3:52 PM CDT): Currently stable without the use of medications. Feels good where she is in her apartment and working. We reviewed red flags. RTC in 6 months. Sooner for any concerns. She is in agreement with plan states understanding. Assessment & Plan (01/27/2024 5:19 PM ACQUISITION ASSOCIATE): Reports stable. Will continue fluoxetine. Will also [...] -No drug use. Non smoker. -Following with SUPERVISOR INSTRUMENT MECHANICS BMI 21.0-21.9, adult 05/30/2023 024 Ovarian torsion 11/04/2018 11/27/2018 Overview (11/04/2018): Added automatically from request for surgery [id number] Immunizations Immunization Administration Dates Next Due DTP [...] on file Legal Sex Female 6:44 AM ACQUISITION ASSOCIATE Gender Identity Female 11/27/2018 10:16 AM ACQUISITION ASSOCIATE Sexual Orientation Not on file Last Filed [...] CDT) C. trachomatis Not Detected Not Detected [facility] N. gonorrhoeae Not Detected Not Detected [facility] Comment: Interpretive Data Testing performed by the [facility]. This assay detects Chlamydia trachomatis and [...] MICROBIOLOGY - GENERAL ORDERABLES Final Result [facility] Department [place] [address] from Last 3 Months or Most Recently Relevant to Health Maintenance Insurance [employer] [facility] [employer] EMPLOYEES [employer] [employer] Advance Directives For more information, please contact: [phone] * Full Code (Latest Code Status on File) Date Activated Date Inactivated Comments 11/04/2018 11:36 PM 11/05/2018 2:56 AM Care Teams Hinging Machine Operator Relationship Specialty Start Date End Date Luis Eduardo Martinez MD [address] [place] [address] PCP - General Family Medicine 05/30/23
[2025-05-07 00:50] LABS: Basophils Absolute Auto 0.06 K/mm3 (0.00-0.10); Basophils Percent Auto 0.5 % (0.0-1.0); Eosinophils Absolute Auto 0.08 K/mm3 (0.02-0.50); Eosinophils Percent Auto 0.7 % (1.0-6.0); Hemoglobin 13.7 g/dL (12.0-15.0); Immature Granulocyte Absolute 0.03 K/mm3 (0.00-0.00); Immature Granulocyte Percent A 0.3 % (0.0-0.0); Lymphocytes Absolute Auto 1.29 K/mm3 (1.10-4.50); Lymphocytes Percent Auto 11.3 % (18.0-42.0); Mean Corpuscular HGB Conc 34.3 g/dL (32-36); Mean Corpuscular Hemoglobin 31.6 pg (27.0-31.0); Mean Corpuscular Volume 92.2 fL (78.0-102.0); Mean Platelet Volume 8.9 fl (9.2-11.8); Monocytes Absolute Auto 1.19 K/mm3 (0.10-0.90); Monocytes Percent Auto 10.5 % (2.0-11.0); Neutrophils Absolute Auto 8.72 K/mm3 (1.70-7.20); Neutrophils Percent Auto 76.7 % (50.0-70.0); Platelet Count Result 289 K/mm3 (150-420); Red Blood Count 4.34 M/mm3 (4.20-5.40); Red Cell Distribution Width 11.5 % (11.6-14.4); White Blood Count 11.4 K/mm3 (4.8-10.8)
[2025-05-07] MEDS: THIAMINE HCL INJ 100 MG, FOLIC ACID 1 MG, MULTIVITAMINS-12 INJ 10 ML, MAGNESIUM SULFATE... IV CONT (00:50)
--- NOTE | 2025-05-07 00:59 | PC.NURSE ---
PATIENT IS CURRENTLY RESTING ON STRETCHER. FIANCE AT HER SIDE. PATIENT HAS WARM BLANKET. LIGHTS HAVE BEEN TURNED OFF. CALL LIGHT IN REACH
[2025-05-07 01:06] VITALS: BP 118/88; PULSE 118; RESP 22; O2SAT 99
[2025-05-07 01:13] LABS: Ethanol 306 mg/dL (<10)
[2025-05-07 01:15] LABS: Anion Gap 10 mmol/L (4-12); Blood Urea Nitrogen 4 mg/dL (7-17); Carbon Dioxide 28 mmol/L (22-30); Chloride 106 mmol/L (98-107); Estimated CRCL calculation 123 ml/min; Estimated Glomerular Filt Rate > 60; Glucose 101 mg/dL (65-110); Osmolality Calculated 294 mOsm/kg (285-295); Potassium 3.8 mmol/L (3.4-5.0); Sodium 144 mmol/L (137-145)
[2025-05-07 01:16] LABS: Alanine Aminotransferase 32 U/L (6-35); Albumin Level 4.6 g/dL (3.5-5.1); Alkaline Phosphatase 89 U/L (38-126); Aspartate Amino Transferase 89 U/L (14-36); Bilirubin,Total 0.5 mg/dL (0.2-1.3); Calcium 8.9 mg/dL (8.4-10.2); Creatine Kinase 131 U/L (30-135); Magnesium 1.9 mg/dL (1.6-2.3); Total Protein 7.5 g/dL (6.3-8.2)
--- NOTE | 2025-05-07 01:24 | PC.NURSE ---
DR TAYLOR AT THE BEDSIDE. EDUCATION WAS GIVEN ABOUT ALCOHOL CESSATION TO FAITH.
--- NOTE | 2025-05-07 01:26 | PC.NURSE ---
PATIENT AMBULATED TO THE BATHROOM WITH RY MOJICA, AT HER SIDE AND FAITH
[2025-05-07] MEDS: FLUoxetine HCL 20 MG CAPSULE PO (01:37)
--- NOTE | 2025-05-07 01:40 | PC.NURSE ---
MEDICATED PER MAR. PATIENT RESTING ON STRETCHER WITH FIANCE AT HER SIDE. CALL LIGHT IN REACH
[2025-05-07 01:53] VITALS: BP 94/54; PULSE 99; RESP 18; O2SAT 95
--- NOTE | 2025-05-07 20:52 | PC.NURSE ---
Patient and father called about patient's prescription for her Librium. Patient was DC from here around 0445 this morning, has not taken any medication since then and her pharmacy will not have it in stock until Saturday. Patient and father requesting to have it sent to another facility that has it in stock. Patient stated she possibly was beginning to have withdraw symptoms and was afraid of having a seizure despite ever having any documented cases in the past. This RN spoke with Dr. Lisa (ERP) briefly about the case, the ERP and this RN recommended that the patient be seen in the closest ED for her symptoms and safety. Patient and family declined to come back for evaluation but stated that if her symptoms got worse that she would go to an ED then. Patient and family were educated on how the medication works and that the efficacy of the medication may not be effective for patient at this time since so much time had past and her symptoms should be re-evaluated by the nearest ED by a physician.
== END 2025-05-07 02:04 | disposition home or self-care (01) ==
PROVIDERS: Emergency Provider Emergency Medicine; PCP Family Medicine
DX: F10.920 Alcohol use, unspecified with intoxication, uncomplicated (principal); F10.939 Alcohol use, unspecified with withdrawal, unspecified; Z79.899 Other long term (current) drug therapy; Y90.8 Blood alcohol level of 240 mg/100 ml or more
CPT/HCPCS: 36415; 80053; 82077; 82550; 83735; 85025; 96365; 96366; 99284; A9270; J3411; J3475; J7121